=== PATIENT | male | born 1950 | race Caucasian/White ===

== ENCOUNTER → 2016-05-29 | Outpatient (CLI) | payer BC ==
[~2016-05-29] MED LIST: MELO7.5T7 PO; PRAV80TA2 PO; ZNTT/150 PO
[2016-05-29 12:11] LABS: BASO % 0.3 %; BASO ABS # 0.02 K/uL (0-0.2); COMPLETE YES; EOS % 2.2 %; HEMATOCRIT 42.7 % (42-52); IG% 0.9 %; LYMPH % 30.5 %; LYMPH ABS # 2.38 K/uL (1.2-3.4); MEAN CELL VOLUME 88.2 fL (80-100); MEAN CORPUSCULAR HEMOGLOBIN 30.2 pg (25-34); MEAN CORPUSCULAR HGB CONC 34.2 g/dl (32-36); MEAN PLATELET VOLUME 9.4 fL (7.4-10.4); MONO % 6.5 %; NEUT % 59.6 %; PLATELET COUNT 254 K/uL (130-400); RED BLOOD COUNT 4.84 M/uL (4.7-6.1); WHITE BLOOD COUNT 7.81 K/uL (4.8-10.8)
[2016-05-29 13:21] LABS: BLOOD UREA NITROGEN 19 mg/dl (7-18); GLUCOSE 96 mg/dl (70-99)
[2016-05-29 13:22] LABS: BUN/CREATININE RATIO 16.9 (10-20); CARBON DIOXIDE 27 mmol/L (21-32); CHLORIDE 108 mmol/L (98-107); POTASSIUM 4.3 mmol/L (3.5-5.1); SODIUM 141 mmol/L (136-145)
[2016-05-29 13:43] LABS: ESTIMATED AVERAGE GLUCOSE 123 mg/dl; HA1C FLAG Normal (Normal)
[2016-05-29 13:53] LABS: ALB/GLOB RATIO 1.2 (0.9-2); ALKALINE PHOSPHATASE 58 U/L (45-117); ALT/SGPT 37 U/L (12-78); AST/SGOT 28 U/L (15-37); CHOLESTEROL 148 mg/dl (0-200); HDL CHOLESTEROL 49 mg/dl; LDL CHOLESTEROL CALCULATED 81 mg/dl; TRIGLYCERIDES 91 mg/dl (0-150); VERY LOW DENSITY LIPOPROT CALC 18 mg/dl
[2016-05-29 14:40] LABS: CALCIUM 9.4 mg/dl (8.5-10.1)
== END | disposition home or self-care (01) ==
LOC: C.LABBFT 09:23
PROVIDERS: ATTEND Internal Medicine
DX: E78.00 Pure hypercholesterolemia, unspecified (principal); R73.01 Impaired fasting glucose

== ENCOUNTER → 2016-10-27 | Outpatient (CLI) | payer BC | END | disposition home or self-care (01) | LOC: C.CPL 08:57 | PROVIDERS: ATTEND Orthopaedic Surgery | DX: S83.242D Other tear of medial meniscus, current injury, left knee, subsequent encounter (principal); X58.XXXD Exposure to other specified factors, subsequent encounter ==

== ENCOUNTER → 2016-11-10 | Outpatient (CLI) | payer BC ==
--- NOTE | 2016-11-10 15:46 | DIAGNOSTIC IMAGING REPORT ---
LEFT LOWER EXTREMITY VENOUS DOPPLER HISTORY: LEFT LEG PAIN AND SWELLING R/O DVT COMPARISON STUDY: None. FINDINGS: There is normal compressibility, flow, and augmentation within the left lower extremity deep venous system. A 5.7 x 2.7 x 1.4 cm slightly complex popliteal cyst. IMPRESSION: No DVT within the left lower extremity. Electronically signed by: Isaac Chapa M.D. 11/10/2016 3:45 PM Dictated Date/Time: 11/10/2016 3:44 PM
== END | disposition home or self-care (01) ==
LOC: C.ULTR 15:04
PROVIDERS: ATTEND Orthopaedic Surgery
DX: M79.662 Pain in left lower leg (principal)

== ENCOUNTER → 2016-11-28 | Outpatient (CLI) | payer BC ==
[2016-11-28 17:31] LABS: LYME DISEASE AB IGG NEG (NEG); LYME DISEASE AB IGM NEG (NEG)
== END | disposition home or self-care (01) ==
LOC: C.LABBFT 13:23
PROVIDERS: ATTEND Internal Medicine
DX: T14.8XXA Other injury of unspecified body region, initial encounter (principal); W57.XXXA Bitten or stung by nonvenomous insect and other nonvenomous arthropods, initial encounter

== ENCOUNTER → 2016-12-04 | Outpatient (CLI) | payer BC ==
[2016-12-04 12:53] LABS: ESTIMATED AVERAGE GLUCOSE 114 mg/dl; HA1C FLAG Normal (Normal)
== END | disposition home or self-care (01) ==
LOC: C.LABBFT 10:40
PROVIDERS: ATTEND Internal Medicine
DX: R73.01 Impaired fasting glucose (principal)

== ENCOUNTER → 2017-02-05 | Outpatient (CLI) | payer BC ==
[~2017-02-05] MED LIST changes: +CRS/10 PO; -PRAV80TA2 PO; +PRLSR20 PO
--- NOTE | 2017-02-05 15:01 | DIAGNOSTIC IMAGING REPORT ---
KUB HISTORY: Follow-up study in a patient with history of kidney stones N20.0 [id number] COMPARISON: KUB 01/21/2016, CT 05/21/2011 FINDINGS: The bowel gas pattern is non-obstructive. Cholecystectomy clips noted. There is no organomegaly. Left-sided nephrolithiasis with 5 mm calculus projecting over the region of the interpolar left kidney. No definite right-sided nephrolithiasis or ureteral calculi. Bilateral renal shadows are partially obscured by bowel gas. Probable phleboliths of the pelvis. Calcifications of the vas deferens also noted. Coarse central prostatic calcifications noted. No pneumoperitoneum or pneumatosis. No fracture. IMPRESSION: Left-sided nephrolithiasis without ureteral calculi identified. Electronically signed by: Dusty Garcia M.D. 02/05/2017 3:00 PM Dictated Date/Time: 02/05/2017 2:57 PM
--- NOTE | 2017-02-13 10:33 | CODING QUERY MEDICAL NECESSITY ---
SUPPORTING DIAGNOSIS NEEDED Dr. Otero, A supporting diagnosis is required for the test/procedure performed on this patient in order for us to be reimbursed by the patient's insurance. Please provide a supporting diagnosis for the following test/procedure listed below next to the test name along with your signature. *If there is no additional diagnosis for this patient that would support the following test/procedure please document that below next to the test/procedure. Test(s)/Procedure(s) that require a supporting diagnosis: * [id number] PSA DIAGNOSIS: DATE OF SERVICE: 02/05/17 Provider Signature: Date: Thank you Parag Weathers [facility] Information Management Once completed, please kindly fax back to [phone] For questions please call [phone]
== END | disposition home or self-care (01) ==
LOC: C.RAD 14:30
PROVIDERS: ATTEND Urology
DX: N20.0 Calculus of kidney (principal)

== ENCOUNTER → 2017-02-11 | Outpatient (CLI) | payer BC ==
[~2017-02-11] MED LIST changes: +OXYC-57 PO; +RANI150T85 PO; -ZNTT/150 PO
--- NOTE | 2017-02-11 13:30 | DIAGNOSTIC IMAGING REPORT ---
CHEST 2 VIEWS ROUTINE CLINICAL HISTORY: 66 years-old Male presenting with R50.9 [id number] Cough productive of purulent [id number]. TECHNIQUE: PA and lateral views of the chest were obtained. COMPARISON: 05/31/2010. FINDINGS: Cardiomediastinal silhouette normal. Lungs and pleural spaces clear. Osseous structures normal. Cholecystectomy clips noted. IMPRESSION: 1. No acute cardiopulmonary disease. Electronically signed by: Preston Cavanaugh M.D. 02/11/2017 1:28 PM Dictated Date/Time: 02/11/2017 1:26 PM
== END | disposition home or self-care (01) ==
LOC: C.RAD1850 13:14
PROVIDERS: ATTEND Internal Medicine
DX: R50.9 Fever, unspecified (principal); R05 Cough

== ENCOUNTER → 2017-02-23 | Day surgery (SDC) | payer BC ==
[2017-01-30 09:21] VITALS: Ht 174 cm; Wt 90.9 kg
[~2017-02-23] VITALS: Ht 174 cm; Wt 90.9 kg
[~2017-02-23] MED LIST changes: +LIDOCAINE HCL 2% 2 ML VIAL (20MG/ML) ONE; -OXYC-57 PO; +PROPOFOL IV EMULSION 10 MG/ML 20 ML VIAL IV ONE; -RANI150T85 PO; +SODIUM CHLORIDE 0.9% 500ML 500 ML IV ONE; +ZNTT/150 PO
[2017-02-23 08:13] VITALS: TEMP 36.9
--- NOTE | 2017-02-23 08:43 | Endo History and Physical ---
History & Physical Date of Service: Feb 23, 2017. Chief Complaint: HISTORY OF POLYPS Referring Physician: DR HOGAN History of Present Illness 66 yo CM who presents for colonoscopy secondary to history of colon polyps. Past Surgical History Hx Cardiac Surgery: No Hx Internal Defibrillator: No Hx Pacemaker: No Hx Abdominal Surgery: Yes (HERNIA REPAIR X2, MACKENZIE) Hx of Implantable Prosthesis: No Hx Post-Op Nausea and Vomiting: No Hx Cancer Surgery: No Hx Thoracic Surgery: No Hx Orthopedic: Yes (RT/LT KNEE SURGERY, LT/RT RCR) Hx Urinary Tract Surgery: No Family History None Social History Smoking Status: Never Smoker Hx Substance Use: No Hx Alcohol Use: Yes (OCCASIONAL) Allergies Coded Allergies: Atorvastatin (Verified Allergy, Unknown, MUSCLE WEAKNESS OR SORENESS, ) Current Medications Reported Home Medications Medications Dose Route/Sig Max Daily Dose Days Date Category Prilosec (Omeprazole) 20 Mg Capcr 20 Mg PO DAILY PRN 01/30/17 Reported Crestor (Rosuvastatin Calcium) 10 Mg Tab 10 Mg PO HS 01/30/17 Reported Mobic (Meloxicam) 7.5 Mg Tab 7.5 Mg PO BID PRN 11/21/15 Reported Zantac (Ranitidine HCl) 150 Mg Tab 150 Mg PO BID PRN 11/21/15 Reported Vital Signs Weight (Kilograms): 90.91 Height (Feet): 5 Height (Inches): 8.5 Date Time Temp Pulse Resp B/P (MAP) Pulse Ox O2 Delivery O2 Flow Rate FiO2 02/23/17 08:13 36.9 84 18 156/89 (111) 93 Room Air Physical Exam General Appearance: WD/WN, no apparent distress Respiratory/Chest: Auscultation: breath sounds normal Cardiovascular: Heart Auscultation: RRR Abdomen: Bowel Sounds: normal Inspection & Palpation: soft, non-distended, no tenderness, guarding & rebound Assessment and Plan Assessment: 66 yo CM who presents for colonoscopy secondary to history of colon polyps. Plan: Proceed with colonoscopy.
--- NOTE | 2017-02-23 09:08 | GI REPORT ---
Procedure Date: 02/23/2017 8:23 AM Procedure: Colonoscopy Indications: High risk colon cancer surveillance: Personal history of colonic polyps Medicines: Monitored Anesthesia Care Complications: No immediate complications. Estimated Blood Loss: Estimated blood loss: none. Procedure: Pre-Anesthesia Assessment: - Prior to the procedure, a History and Physical was performed, and patient medications and allergies were reviewed. The patient's tolerance of previous anesthesia was also reviewed. The risks and benefits of the procedure and the sedation options and risks were discussed with the patient. All questions were answered, and informed consent was obtained. Prior Anticoagulants: The patient has taken no previous anticoagulant or antiplatelet agents. ASA Grade Assessment: II - A patient with mild systemic disease. After reviewing the risks and benefits, the patient was deemed in satisfactory condition to undergo the procedure. After I obtained informed consent, the scope was passed under direct vision. Throughout the procedure, the patient's blood pressure, pulse, and oxygen saturations were monitored continuously. The scope was introduced through the anus and advanced to the terminal ileum. The colonoscopy was performed without difficulty. The patient tolerated the procedure well. The quality of the bowel preparation was good. The terminal ileum, ileocecal valve, appendiceal orifice, and rectum were photographed. Findings: Multiple small-mouthed diverticula were found in the sigmoid colon. Non-bleeding internal hemorrhoids were found during retroflexion. The hemorrhoids were small. Impression: - Diverticulosis in the sigmoid colon. - Non-bleeding internal hemorrhoids. - No specimens collected. Recommendation: - Resume previous diet. - Continue present medications. - Repeat colonoscopy in 5 years for surveillance. - Return to primary care physician as previously scheduled. Nelson Mendoza DO 02/23/2017 9:08:01 AM This report has been signed electronically. Note Initiated On: 02/23/2017 8:23 AM I attest to the content of the Intraoperative Record and orders documented therein, exceptions below
--- NOTE | 2017-02-23 09:09 | Discharge Instructions ---
Endoscopy Patient Instructions Date / Procedure(s) Performed Feb 23, 2017. Colonoscopy Allergy Information Coded Allergies: Atorvastatin (Verified Allergy, Unknown, MUSCLE WEAKNESS OR SORENESS, ) Discharge Date / Findings Feb 23, 2017. Diverticulosis Internal hemorrhoids Medication Instructions OK to resume all medications today as prescribed Reported Home Medications Medications Dose Route/Sig Max Daily Dose Days Date Category Prilosec (Omeprazole) 20 Mg Capcr 20 Mg PO DAILY PRN 01/30/17 Reported Crestor (Rosuvastatin Calcium) 10 Mg Tab 10 Mg PO HS 01/30/17 Reported Mobic (Meloxicam) 7.5 Mg Tab 7.5 Mg PO BID PRN 11/21/15 Reported Zantac (Ranitidine HCl) 150 Mg Tab 150 Mg PO BID PRN 11/21/15 Reported Provider Instructions Activity Restrictions - No exercising or heavy lifting for 24 hours. - Do not drink alcohol the day of the procedure. - Do not drive a car or operate machinery until the day after the procedure. - Do not make any important decisions or sign important papers in 24 hours after the procedure. Following Day: - Return to full activity which may include returning to work/school. Diet Start your diet with liquids and light foods (jello, soup, juice, toast). Then eat your usual diet if not nauseated. Treatment For Common After Affects For mild abdominal pain, bloating, or excessive gas: - Rest - Eat lightly - Lie on right side Follow-Up Information Follow-up with DR HOGAN as scheduled Anesthesia Information What You Should Know You have had a procedure that required some medicine to reduce anxiety and discomfort. This treatment is called moderate sedation. After receiving the treatment, you may be sleepy, but you will be able to breathe on your own. The effects of the treatment may last for several hours. Follow these instructions along with Activity/Diet recommendations noted above: * Do NOT do anything where dizziness or clumsiness would be dangerous. * Rest quietly at home today, then you can be up and about tomorrow. * Have a responsible person stay with you the rest of today. * You may have had an I.V. today. If so, you may take the dressing off later today. Recommendations Call your doctor if: * Trouble breathing * Continuous vomiting for more than 24 hours * Temperature above 101 degrees * Severe abdominal pain or bloating * Pain not relieved by pain medicine ordered * There is increased drainage or redness from any incision * A large amount of rectal bleeding greater than 2-3 tablespoons. (If you had a polyp/s removed or have hemorrhoids, a small amount of blood - from the rectum is to be expected.) * You have any unanswered questions or concerns. IN THE EVENT OF A SERIOUS EMERGENCY, GO TO THE NEAREST EMERGENCY ROOM Your discharge instructions were prepared by provider Nelson Mendoza. Patient Instructions Signature Page Rowdy Betts Patient (or Guardian) Signature/Date: I have read and understand the instructions given to me by my caregivers. Caregiver/RN/Doctor Signature/Date: The above-named patient and/or guardian has received patient instructions on this date. + Original Patient Signature Page (only) stays with chart. Please make copy for patient.
--- NOTE | 2017-02-23 09:32 | Anesthesiology Progress Note ---
Anesthesia Post Op Note Date & Time Feb 23, 2017 at 09:32 Vital Signs Pain Intensity: 0 Vital Signs Past 12 Hours Date Time Temp Pulse Resp B/P (MAP) Pulse Ox O2 Delivery O2 Flow Rate FiO2 02/23/17 09:23 72 18 134/79 (97) 95 Room Air 02/23/17 09:08 78 16 104/57 (73) 98 Nasal Cannula 4 02/23/17 08:13 36.9 84 18 156/89 (111) 93 Room Air Notes Mental Status: alert / awake / arousable, participated in evaluation Pt Amnestic to Procedure: Yes Nausea / Vomiting: adequately controlled Pain: adequately controlled Airway Patency, RR, SpO2: stable & adequate BP & HR: stable & adequate Hydration State: stable & adequate Anesthetic Complications: no major complications apparent
[2017-02-23 09:38] VITALS: BP 135/83; PULSE 68; O2SAT 96
== END | disposition home or self-care (01) ==
LOC: C.GI 07:42
PROVIDERS: ATTEND Internal Medicine
DX: Z12.11 Encounter for screening for malignant neoplasm of colon (principal); Z86.010 Personal history of colon polyps; K57.30 Diverticulosis of large intestine without perforation or abscess without bleeding; K64.8 Other hemorrhoids; E78.5 Hyperlipidemia, unspecified; K21.9 Gastro-esophageal reflux disease without esophagitis; M19.90 Unspecified osteoarthritis, unspecified site; Z79.899 Other long term (current) drug therapy

== ENCOUNTER → 2017-02-24 | Outpatient (CLI) | payer BC ==
[~2017-02-24] MED LIST changes: -LIDOCAINE HCL 2% 2 ML VIAL (20MG/ML) ONE; -PROPOFOL IV EMULSION 10 MG/ML 20 ML VIAL IV ONE; -SODIUM CHLORIDE 0.9% 500ML 500 ML IV ONE
[2017-02-24 16:47] LABS: BASO % 0.3 %; BASO ABS # 0.04 K/uL (0-0.2); EOS % 1.8 %; EOS ABS # 0.21 K/uL (0-0.5); HEMATOCRIT 42.7 % (42-52); HEMOGLOBIN 14.6 g/dL (14.0-18.0); IG# 0.09 K/uL (0.00-0.02); LYMPH % 18.7 %; LYMPH ABS # 2.16 K/uL (1.2-3.4); MEAN CORPUSCULAR HEMOGLOBIN 31.1 pg (25-34); MEAN CORPUSCULAR HGB CONC 34.2 g/dl (32-36); MEAN PLATELET VOLUME 9.8 fL (7.4-10.4); MONO % 6.9 %; MONO ABS # 0.79 K/uL (0.11-0.59); NEUT % 71.5 %; NEUT ABS # 8.24 K/uL (1.4-6.5); PLATELET COUNT 214 K/uL (130-400); RED CELL DISTRIBUTION WIDTH CV 13.2 % (11.5-14.5); RED CELL DISTRIBUTION WIDTH SD 43.3 fL (36.4-46.3); WHITE BLOOD COUNT 11.53 K/uL (4.8-10.8)
[2017-02-24 17:31] LABS: BLOOD UREA NITROGEN 22 mg/dl (7-18); CARBON DIOXIDE 28 mmol/L (21-32); SODIUM 139 mmol/L (136-145)
== END | disposition home or self-care (01) ==
LOC: C.LAB 15:21
PROVIDERS: ATTEND Urology
DX: N20.0 Calculus of kidney (principal)

== ENCOUNTER → 2017-02-26 | Outpatient (CLI) | payer BC ==
[~2017-02-26] MED LIST changes: +OXYC-57 PO
--- NOTE | 2017-02-26 17:23 | DIAGNOSTIC IMAGING REPORT ---
KUB CLINICAL HISTORY: N20.0 NephrolithiasisTO BE DONE EITHER THE NIGHT BEFORE OR MORNI nephrocalcinosis COMPARISON STUDY: 02/05/2017. FINDINGS: Unchanged 5 mm calculus mid aspect left kidney. No change in localization or position compared to the prior study. Right kidney is negative for significant calcification within limitations of overlying bowel content. Multiple pelvic vascular calcifications unchanged. Bowel pattern is nonobstructive. IMPRESSION: Unchanged 5 mm calcification central left kidney. No change from the prior study. The above report was generated using voice recognition software. It may contain grammatical, syntax or spelling errors. Electronically signed by: Lester Tran M.D. 02/26/2017 5:22 PM Dictated Date/Time: 02/26/2017 5:20 PM
== END | disposition home or self-care (01) ==
LOC: C.RAD 17:00
PROVIDERS: ATTEND Urology
DX: N20.0 Calculus of kidney (principal)

== ENCOUNTER → 2017-02-27 | Day surgery (SDC) | payer BC ==
[2017-02-24 15:46] VITALS: Ht 174 cm; Wt 90.9 kg
[~2017-02-27] VITALS: Ht 174 cm; Wt 90.9 kg
[~2017-02-27] MED LIST changes: +ATROPINE SULFATE 0.1 MG/ML 5ML SYR IV PRN; +CIPROFLOXACIN 400MG / D5W IV SCH; +DEXAMETHASONE SOD INJ 4 MG/ML VIAL ONE; +EpHEDrine SULFATE INJ 50 MG/ML AMP IV PRN; +FENTANYL CITRATE INJ 50 MCG/1 ML 2 ML VIAL IV PRN; +FENTANYL CITRATE INJ 50 MCG/1 ML 2 ML VIAL ONE; +LACTATED RINGER'S 1000ML 1,000 ML IV SCH; +LIDOCAINE HCL 2% 2 ML VIAL (20MG/ML) ONE; +MIDAZOLAM HCL 1 MG/ML 2ML VIAL ONE; +ONDANSETRON INJ 2 MG/ML 2 ML VIAL IV PRN; +ONDANSETRON INJ 2 MG/ML 2 ML VIAL ONE; +PROMETHAZINE HCL INJ 6.25 MG in SODIUM CHLORIDE 0.9% 50ML 50 ML IV PRN; +PROPOFOL IV EMULSION 10 MG/ML 20 ML VIAL IV ONE
--- NOTE | 2017-02-27 06:59 | History & Physical Bridge - SC ---
H&P Re-Evaluation Bridge Note: I have examined the patient, reviewed the History & Physical and in the interval since the performance of the History & Physical I have noted the following changes of clinical significance: No changes noted
--- NOTE | 2017-02-27 07:41 | [facility] Post Operative Brief Note ---
Immediate Operative Summary Operative Date Feb 27, 2017. Pre-Operative Diagnosis Left Renal Stone Post-Operative Diagnosis Same as pre-op Procedure(s) Performed Left Extracorporeal Shock Wave Lithotripsy - Renal Surgeon Dr. Otero Board Operator Surgeon(s) None Estimated Blood Loss 0 mL Findings stone seen Specimens None
--- NOTE | 2017-02-27 07:42 | Discharge Instructions-SurgCtr ---
Discharge Instructions Date of Service Feb 27, 2017. Visit Reason for Visit: Stones Discharge Discharge Diagnosis / Problem: l eswl Discharge Goals Goal(s): Decrease discomfort, Increase independence Medications Stopped Medications Name(s): meloxicam stopped. last dose 6-8 weeks ago. Activity Recommendations Activity Limitations: resume your previous activity Anesthesia . Post Anesthesia Instructions: If you have had General Anesthesia or IV Sedation: * Do not drive today. * Resume driving when surgeon permits. * Do not make important decisions or sign legal documents today. * Call surgeon for: 1. Temperature elevations greater than 101 degrees F. 2. Uncontrollable pain. 3. Excessive bleeding. 4. Persistent nausea and vomiting. 5. Medication intolerance (nausea, vomiting or rash). * For nausea and vomiting use only clear liquids such as: tea, soda, bouillon until nausea subsides, then gradually increase diet as tolerated. * If you have any concerns or questions, call your surgeon's office. If physician is unavailable and it is an emergency, call 911 or go to the nearest emergency room. . Diet Recommendations Home Diet: resume previous diet Procedures Procedures Performed: Left Extracorporeal Shock Wave Lithotripsy - Renal Pending Studies Studies pending at discharge: no Medical Emergencies . Who to Call and When: Medical Emergencies: If at any time you feel your situation is an emergency, please call 911 immediately. . Non-Emergent Contact Non-Emergency issues call your: Urologist . . "Provider Documentation" section prepared by Sagar Otero. .
[2017-02-27 08:35] VITALS: TEMP 36.3
--- NOTE | 2017-02-27 08:53 | Anesthesia Progress Nt - [facility] ---
Anesthesia Post Op Note Date & Time Feb 27, 2017 at 08:52 Vital Signs Pain Intensity: 0 Vital Signs Past 12 Hours Date Time Temp Pulse Resp B/P (MAP) Pulse Ox O2 Delivery O2 Flow Rate FiO2 02/27/17 08:35 36.3 56 16 141/83 (102) 98 Room Air 02/27/17 08:26 58 8 02/27/17 08:26 59 8 85 02/27/17 08:25 121/81 02/27/17 08:21 59 7 02/27/17 08:21 59 7 99 02/27/17 08:20 127/82 02/27/17 08:16 58 7 02/27/17 08:16 55 7 97 02/27/17 08:15 36.5 56 12 128/77 95 Room Air 02/27/17 08:15 128/77 02/27/17 08:11 58 7 02/27/17 08:11 58 7 94 02/27/17 08:10 128/84 02/27/17 08:06 68 10 97 02/27/17 08:06 69 10 02/27/17 08:05 124/83 02/27/17 08:01 60 14 02/27/17 08:01 59 14 98 02/27/17 08:00 126/86 02/27/17 07:56 69 13 99 02/27/17 07:56 69 13 02/27/17 07:55 109/79 02/27/17 07:52 36.5 60 12 129/89 98 Diffusion Mask 6 02/27/17 07:51 58 15 02/27/17 07:51 59 15 129/89 98 02/27/17 06:31 36.9 67 18 143/83 (103) 94 Room Air Notes Mental Status: alert / awake / arousable, participated in evaluation Pt Amnestic to Procedure: Yes Nausea / Vomiting: adequately controlled Pain: adequately controlled Airway Patency, RR, SpO2: stable & adequate BP & HR: stable & adequate Hydration State: stable & adequate Anesthetic Complications: no major complications apparent
[2017-02-27 08:56] VITALS: BP 151/79; PULSE 54; O2SAT 98
--- NOTE | 2017-02-27 11:18 | OPERATIVE REPORT ---
DATE OF OPERATION: 02/27/2017 PREOPERATIVE DIAGNOSIS: Left renal stone. POSTOPERATIVE DIAGNOSIS: Same. SURGEON: Dr. Otero. ANESTHESIA: General. INDICATIONS: The patient is a 5 mm renal stone who elected earlier this week to have lithotripsy. DESCRIPTION OF THE PROCEDURE: The patient was given general anesthesia after he had Venodyne stockings placed and was given preoperative antibiotics. The stone was visualized in 2 garzon and was given 2500 shocks, the majority at level 5. At the end of the procedure, he was transferred to the recovery room in stable condition. I attest to the content of the Intraoperative Record and any orders documented therein. Any exception s are noted below.
== END | disposition home or self-care (01) ==
LOC: X.SURG 06:17
PROVIDERS: ATTEND Urology
DX: N20.0 Calculus of kidney (principal); E78.00 Pure hypercholesterolemia, unspecified; E78.5 Hyperlipidemia, unspecified; Z90.89 Acquired absence of other organs; Z98.52 Vasectomy status; Z98.41 Cataract extraction status, right eye; Z98.42 Cataract extraction status, left eye; Z90.49 Acquired absence of other specified parts of digestive tract; Z79.899 Other long term (current) drug therapy; Z96.653 Presence of artificial knee joint, bilateral; Z82.49 Family history of ischemic heart disease and other diseases of the circulatory system

== ENCOUNTER → 2017-03-19 | Outpatient (CLI) | payer BC ==
[~2017-03-19] MED LIST changes: -ATROPINE SULFATE 0.1 MG/ML 5ML SYR IV PRN; -CIPROFLOXACIN 400MG / D5W IV SCH; -DEXAMETHASONE SOD INJ 4 MG/ML VIAL ONE; -EpHEDrine SULFATE INJ 50 MG/ML AMP IV PRN; -FENTANYL CITRATE INJ 50 MCG/1 ML 2 ML VIAL IV PRN; -FENTANYL CITRATE INJ 50 MCG/1 ML 2 ML VIAL ONE; -LACTATED RINGER'S 1000ML 1,000 ML IV SCH; -LIDOCAINE HCL 2% 2 ML VIAL (20MG/ML) ONE; -MIDAZOLAM HCL 1 MG/ML 2ML VIAL ONE; -ONDANSETRON INJ 2 MG/ML 2 ML VIAL IV PRN; -ONDANSETRON INJ 2 MG/ML 2 ML VIAL ONE; -PROMETHAZINE HCL INJ 6.25 MG in SODIUM CHLORIDE 0.9% 50ML 50 ML IV PRN; -PROPOFOL IV EMULSION 10 MG/ML 20 ML VIAL IV ONE
--- NOTE | 2017-03-19 10:15 | DIAGNOSTIC IMAGING REPORT ---
KUB CLINICAL HISTORY: 66 years-old Male presenting with N20.0 NephrolithiasisTO BE DONE EITHER THE NIGHT BEFORE OR MORNI. TECHNIQUE: Single supine view of the abdomen was obtained. COMPARISON: 02/26/2017. FINDINGS: Nonobstructive bowel gas pattern. No gross pneumoperitoneum. Calcification projects over the left kidney, unchanged in position from prior. A tiny additional calcification may also be present immediately superior to this. Overall evaluation of the renal shadows is limited due to bowel gas and stool as well as overlapping shadows with the left 11th rib. No radiographic evidence of right renal calculi or ureteral calculi. Calcification of the vas deferentia suggests underlying diabetes. Stable distribution of pelvic phleboliths. Degenerative changes of the spine. IMPRESSION: 1. Persistent left renal calculus with a potential punctate additional new left renal calculus. No right renal or ureteral calculi. Overall limited examination by bowel gas and stool. Electronically signed by: Preston Cavanaugh M.D. 03/19/2017 10:13 AM Dictated Date/Time: 03/19/2017 10:11 AM
== END | disposition home or self-care (01) ==
LOC: C.RAD 09:55
PROVIDERS: ATTEND Urology
DX: N20.0 Calculus of kidney (principal)